=== PATIENT | female | born 1955 ===

== ENCOUNTER 2016-09-23 07:49 | Day surgery (SDC) | payer MEDICARE ==
[2016-09-14 10:47] VITALS: BMI 34.9
[2016-09-23] MEDS ORDERED: Sodium Chloride 0.9% 1,000 ML IV SCH (09:00)
[2016-09-23] MEDS ORDERED: Propofol 10 mg/ml Inj (20 ML) ONE (09:33)
[2016-09-23 10:33] VITALS: BP 132/78; PULSE 74; RESP 16; TEMP 97.8; O2SAT 98
== END 2016-09-23 10:59 | disposition home or self-care (01) ==
LOC: ENDO 07:49
PROVIDERS: ATTEND Specialist
DX: K22.10 Ulcer of esophagus without bleeding (principal); K29.50 Unspecified chronic gastritis without bleeding; Z01.818 Encounter for other preprocedural examination; E66.01 Morbid (severe) obesity due to excess calories; G47.33 Obstructive sleep apnea (adult) (pediatric); J44.9 Chronic obstructive pulmonary disease, unspecified; F17.210 Nicotine dependence, cigarettes, uncomplicated
CPT/HCPCS: 43239; 82948; 88305; 88312; 88342; J2001; J2704; J3010; J7040 ×2

== ENCOUNTER 2017-08-06 06:56 | Day surgery (SDC) | payer MEDICARE ==
[2017-07-28 12:28] VITALS: BMI 30.2
[2017-08-06] MEDS ORDERED: Ofloxacin 0.3% Otic Soln ONE (09:08)
[2017-08-06] MEDS ORDERED: Ciprofloxacin/Dexamethasone OTIC SUSP ONE (09:09)
[2017-08-06] MEDS ORDERED: EPINEPHrine 1:1000 Nasal Sol(30mL) ONE (09:09)
[2017-08-06] MEDS ORDERED: Propofol 10 mg/ml Inj (20 ML) ONE (09:16)
[2017-08-06] MEDS ORDERED: Sevoflurane - Inhalation Anesthetic Liq (250 ml) ONE (09:24)
--- NOTE | 2017-08-06 10:11 | PCM.SURG1 ---
Surgeon's Initial Post Op Note - Surgeon's Notes Surgeon: Dr. Cuevas Helper Marble Finisher: Augustine PGY3, Shereen PGY1, Norma PGY1 Type of Anesthesia: General LMA Anesthesia Administered By: Dr. Jurado Pre-Operative Diagnosis: Left Hearing loss, Vertigo Operative Findings: see operative report Post-Operative Diagnosis: same Operation Performed: Left Myringotomy with tube and chemical Labyrinthectomy Specimen/Specimens Removed: none Estimated Blood Loss: EBL {In ML}: 1 Blood Products Given: N/A Post-Op Condition: Good Date of Surgery/Procedure: 08/06/17 Time of Surgery/Procedure: 10:11
[2017-08-06] MEDS ORDERED: oxyCODONE 5 mg Immediate Release Tab PO STA (12:15)
[2017-08-06] MEDS ORDERED: oxyCODONE 5 mg Immediate Release Tab PO ONE (12:29)
[2017-08-06 13:08] VITALS: BP 127/82; PULSE 81; RESP 20; TEMP 98; O2SAT 97
--- NOTE | 2017-08-06 21:46 | OP ---
PROCEDURE DATE: 08/06/2017 PREOPERATIVE DIAGNOSES: Left profound hearing loss and vertigo. POSTOPERATIVE DIAGNOSES: Left profound hearing loss and vertigo. PROCEDURE: Left myringotomy with chemical labyrinthectomy. SURGEON: Venkatesh Cuevas DO TYPE OF ANESTHESIA: General endotracheal. ESTIMATED BLOOD LOSS: Minimal. DESCRIPTION OF PROCEDURE: This is a white female, who had a previous history of sudden hearing loss and vertigo and responded well to previous tympanostomy tubes, labyrinthectomy on the left hand side. The patient was taken to the operating room, prepped and draped in routine fashion. The operating microscope was brought in and #5 speculum was inserted into the ear canal, revealing atelectatic TM on this side. Myringotomy incision was made in the posterior inferior quadrant in a radial fashion and an Blas ventilation tube was inserted through the myringotomy incision. Decadron 6 mg was injected through the tube and the patient was left in the right lateral area for approximately 10 minute duration. The patient tolerated the procedure well and was taken from the operating room to the recovery room in stable condition. Venkatesh Cuevas DO
== END 2017-08-06 13:35 | disposition home or self-care (01) ==
LOC: SDS 06:56
PROVIDERS: ATTEND Otolaryngology
DX: H91.8X2 Other specified hearing loss, left ear (principal); R42 Dizziness and giddiness
CPT/HCPCS: 69436; 69905; J1100; J2001; J2405; J2704; J3010; J7120

== ENCOUNTER 2018-06-25 17:01 | Emergency (ER) | payer MEDICARE ==
[2018-06-25 17:01] VITALS: BMI 30.2
[2018-06-25 17:20] VITALS: TEMP 98.4
[2018-06-25 17:26] VITALS: BP 158/92; PULSE 85; RESP 18; O2SAT 96
[2018-06-25 18:24] LABS: BASO # 0.02 K/mm3 (0.0-2.0); BASO % 0.3 % (0.0-3.0); EOS % 0.1 % (1.5-5.0); HEMOGLOBIN 12.8 g/dL (12.0-16.0); LYMPH # 2.4 (1.2-3.4); LYMPH % 30.2 % (22.0-35.0); MEAN CELL VOLUME 90.2 fl (80.0-105.0); MEAN CORPUSCULAR HEMOGLOBIN 28.6 pg (25.0-35.0); MEAN CORPUSCULAR HGB CONC 31.7 g/dl (31.0-37.0); MEAN PLATELET VOLUME 9.9 fl (7.0-11.0); MONO # 0.4 (0.1-0.6); MONO % 5.5 % (1.0-6.0); RBC 4.48 10^6/uL (3.5-6.1); RED CELL DISTRIBUTION WIDTH 13.4 % (11.5-14.5)
[2018-06-25 18:29] LABS: ALBUMIN 4.5 g/dL (3.0-4.8); ALT/SGPT 9 U/L (7-56); AST/SGOT 23 U/L (14-36); BLOOD UREA NITROGEN 20 mg/dL (7-21); CALCIUM 9.9 mg/dL (8.4-10.5); GFR NON-AFRICAN AMERICAN 45
[2018-06-25 18:40] LABS: TROPONIN I < 0.01 ng/mL
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
--- NOTE | 2018-06-26 10:51 | RAD ---
Date of service: 06/25/2018 HISTORY: r/o infiltrate COMPARISON: 07/19/2017 TECHNIQUE: 1 view obtained. FINDINGS: LUNGS: No active pulmonary disease. PLEURA: No significant pleural effusion identified, no pneumothorax apparent. CARDIOVASCULAR: Aortic calcification. Mild aortic tortuosity Normal cardiac size. No pulmonary vascular congestion. OSSEOUS STRUCTURES: No significant abnormalities. VISUALIZED UPPER ABDOMEN: Normal. OTHER FINDINGS: None. IMPRESSION: No active disease.
--- NOTE | 2018-06-26 17:39 | CARD ---
APPROVED REPORT Date of service: 06/25/2018 EKG Measurement Heart [id number] <Conclusion> Normal sinus rhythm Normal ECG
== END 2018-06-25 18:57 | disposition home or self-care (01) ==
LOC: ED 17:01
DX: I10 Essential (primary) hypertension (principal); Z87.891 Personal history of nicotine dependence
CPT/HCPCS: 71045; 80053; 82550; 83615; 83735; 84484; 85025; 93005; 96374; 99283; J1885

== ENCOUNTER 2018-07-21 09:36 | Outpatient (CLI) | payer MEDICARE | END 2018-07-21 09:37 | disposition home or self-care (01) | LOC: RAD 09:36 ==

== ENCOUNTER 2018-08-04 16:06 | Outpatient (CLI) | payer MEDICARE | END 2018-08-04 16:07 | disposition home or self-care (01) | LOC: LAB 16:06 ==